=== PATIENT | male | born 1935 | race Caucasian/White ===

== ENCOUNTER → 2016-12-30 | Outpatient (CLI) | payer OTHER ==
--- NOTE | 2017-01-01 08:15 | RADONC ---
RADIATION ONCOLOGY FOLLOWUP NOTE DATE: 12/30/2016 CHART NUMBER: [id number] DIAGNOSIS: Prostate cancer. STAGE: Stage IV. ECOG PERFORMANCE STATUS: 1. FOLLOWUP NOTE: Mr. Fernandez is a very pleasant 81-year-old white male with the diagnosis of metastatic adenocarcinoma of the prostate who is presenting to us today for routine followup visit 1 year and 9 months post completion of palliative radiation therapy to his lower thoracic spine. The patient presents today reporting that the area treated is feeling much better and he is having almost no pain there at all. He reports a marked recent increase in the pain in his lower back however below the treated area. He reports that this has increased significantly over the past couple of months. The pain now is running down his legs bilaterally. The patient has no other complaints at this time related to his radiation therapy or disease. He has the general physical limitations, but overall denies nausea, vomiting, fevers, chills, night sweats, diplopia, headaches, anxiety, depression, anorexia, weight loss, visual disturbances, chest pain, urinary or bowel difficulties, or neurological problems. PHYSICAL EXAMINATION: The patient is a well-developed, well-nourished male in no acute distress. HEENT exam is normocephalic, atraumatic. Extraocular movements are intact. There is no palpable cervical, supraclavicular, infraclavicular, axillary, or inguinal lymphadenopathy present. Lungs are clear to auscultation and percussion. Heart has a regular rate and rhythm. Abdomen is benign with no hepatosplenomegaly, masses, or tenderness. Rectal examination reveals a normal anal sphincter tone. Skeletal examination reveals no tenderness to pressure or percussion of the bony skeleton. Extremities reveal no clubbing, cyanosis, or edema. Neurologic exam is grossly intact, as is the remainder of the physical examination. ASSESSMENT: The patient has done well with his radiation to the thoracic spine from the levels of T10 through L1 with a marked improvement following radiation for the past 2 years. He is reporting new pain and I am ordering an MRI of the lower spine as well as a new bone scan to further evaluate his present situation. Clearly, he has done well with palliative radiation therapy in the past and should there be disease that is treatable we are more than happy to take care of this patient's difficulty. Once again, I have ordered new studies to be undertaken and the patient will be returning to me following completion of those studies to review the results and see if we could deliver any palliation for his discomfort. In the meantime, he will continue his follow up with his other physicians as well. Cc: Dr. Ramirez, Dr. Garett Justice cc: Leonel Kraft MD, FRCPC Killian Weaver MD
== END ==
LOC: M ONCR 13:11
PROVIDERS: ATTEND Radiology Radiation Oncology
DX: C61 Malignant neoplasm of prostate (principal); C79.51 Secondary malignant neoplasm of bone

== ENCOUNTER → 2017-01-18 | Outpatient (CLI) | payer OTHER ==
[~2017-01-18] MED LIST: PROHANCE 279.3MG/ML 5ML VIAL (A9576) As Ordered ONE
--- NOTE | 2017-01-18 12:42 | REP ---
MR LUMBAR SPINE WITHOUT AND WITH CONTRAST: HISTORY: Prostate carcinoma. CONTRAST: ProHance 9 mL. COMPARISON: 04/15/2015 Decreased signal intensity on T2-weighted images is present in the L3-4 through L5-S1 intervertebral discs. The discs are decreased in height. These findings are consistent with disc degeneration. There is no disc bulge or herniation at the L1-2 and L2-3 levels. There is hypertrophy of the posterior articulating facets. The nerves exit the neural foramina without compression. A diffuse disc bulge is present in the L3-4 level. There is minimal compression of the thecal sac. There is hypertrophy of the posterior articulating facets. The L3 nerves exit the neural foramina without compression. A diffuse disc bulge is present at the L4-5 level. There is hypertrophy of the ligamenta flava and posterior articulating facets. These findings produce minimal central canal stenosis. The L4 nerves exit the neural foramina without compression. A diffuse disc bulge is present at the L5-S1 level. This abuts the thecal sac and S1 nerves. There is hypertrophy of the posterior articulating facets. There is compression of the L5 nerves in the neural foramina. The conus medullaris is normal in appearance terminating at the level of the L1-2 intervertebral disc. Diffuse increased signal intensity signal intensity on T1- weighted images is present in the visualized vertebral bodies. This represents fatty marrow replacement secondary to radiation therapy. Heterogeneous signal intensity on T2-weighted images is present in the T11 and 12 vertebral bodies. There is mild heterogeneous enhancement with contrast. These are consistent with metastases. There is moderate and mild loss of vertebral body height at the T11 and T12 levels respectively. There is no subluxation or epidural extension. A small focus of decreased signal intensity on T1 weighted images is present in the L1 vertebral body. There is no enhancement with contrast. IMPRESSION: 1. Diffuse disc bulge at the L3-4 level with minimal thecal sac compression. 2. Minimal central canal stenosis at the L4-5 level secondary to disc bulge, ligamentous and facet hypertrophy. 3. Diffuse disc bulge at the L5-S1 level. This abuts the S1 nerves. There is compression of the L5 nerves in the neural foramina. 4. There are metastatic lesions in the T11 and T12 vertebral bodies with moderate and mild height loss respectively. There is no epidural extension or subluxation. ? Signed by Trav Abarca MD 01/18/2017 01:39 P
--- NOTE | 2017-01-19 06:30 | REP ---
Whole-body bone scan: 01/18/2017. Comparison 09/30/2015 bone scan. Technique: The patient received 21.4 mCi technetium 99m MDP via an IV with whole body and anterior and posterior delayed images. Oblique small field of view images of the pelvis in anterior and posterior ejections as well as the chest and lateral views of the cervical spine and skull. There is abnormal increased activity in the T11 and T12 vertebral bodies. There is now activity in the T10 posterior rib on the right. This is new and I would regard as suspicious as it is several centimeters long. The remainder of the visualized ribs show no acute or discrete findings. The AC and glenohumeral joints and sternoclavicular joints showed mild increased uptake as do the knees and hips consistent with degenerative disease. Cervical spine uptake shows some degenerative change and this is unchanged from the previous study. No abnormal uptake in the calvarium. Paranasal sinuses and mandible shows some increased uptake suggesting sinus and dental disease. Long bones show no abnormal uptake. There is activity in the kidneys and bladder. Impression: 1. Metastatic disease again noted with uptake in the T11 and T12 vertebral bodies and new uptake in the posterior right tenth rib representing a new metastatic focus. Remainder of the exam is unchanged. Signed by Jose Thornton MD 01/19/2017 08:23 P
== END ==
LOC: M RAD 09:45
PROVIDERS: ATTEND Radiology Radiation Oncology
DX: M51.26 Other intervertebral disc displacement, lumbar region (principal); M51.27 Other intervertebral disc displacement, lumbosacral region; C61 Malignant neoplasm of prostate; C79.51 Secondary malignant neoplasm of bone
CPT/HCPCS: 72158; 78306; A9503; A9576

== ENCOUNTER → 2017-01-20 | Outpatient (CLI) | payer OTHER ==
--- NOTE | 2017-01-20 11:15 | RADONC ---
RADIATION ONCOLOGY FOLLOWUP NOTE: DATE: 01/20/2017 CHART NUMBER: [id number] DIAGNOSIS: Prostate cancer. STAGE: IV ECOG PERFORMANCE STATUS: 1 Mr. Fernandez is a very pleasant 81-year-old white male with the diagnosis of metastatic adenocarcinoma of the prostate who saw me on [id number] complaining of low back pain. Since his I have ordered a bone scan which was done on 01/18/2017 which only showed a small area of new uptake in the right 10th rib. An MRI done of the lower lumbar spine on 01/18/2017 showed multiple areas of disc bulge but no significant evidence of new metastatic disease. REVIEW OF SYSTEMS: The patient's review of systems is basically unchanged. He continues have low back pain. He has no rib pain. He has physical limitations secondary to his age and mobility issues. He denies nausea, vomiting, fevers, chills, night sweats, diplopia, headaches, anxiety or depression, anorexia, weight loss, visual disturbances, chest pain, urinary or bowel difficulties. PHYSICAL EXAMINATION: The patient is a chronically ill elderly male in no acute distress. HEENT: Exam is normocephalic, atraumatic. Extraocular movements are intact. There is no palpable cervical, supraclavicular, infraclavicular, axillary or inguinal lymphadenopathy present. His lungs are clear to auscultation and percussion. His heart has regular rate and rhythm. His abdomen is benign with no splenomegaly, masses or tenderness. Skeletal examination reveals no tenderness to pressure percussion of the bony skeleton. Extremities reveal no clubbing, cyanosis or edema. ASSESSMENT: The patient is clinically stable at this point. His back pain is related to degenerative issues rather than malignancy. He is undergoing Lupron treatments at this time and his systemic therapy appears to be keeping him in good set. Once again I have scheduled the patient see me again in 6 months for further followup. He will also continue to be followed by his other physicians. Cc: Dr. Ashley Justice. cc: Leonel Kraft MD, CPC Killian Weaver MD
== END ==
LOC: M ONCR 09:55
PROVIDERS: ATTEND Radiology Radiation Oncology
DX: C61 Malignant neoplasm of prostate (principal); C79.51 Secondary malignant neoplasm of bone

== ENCOUNTER → 2017-09-07 | Outpatient (CLI) | payer OTHER | LOC: M ONCR 12:36 | DX: C61 Malignant neoplasm of prostate (principal); C79.51 Secondary malignant neoplasm of bone | CPT/HCPCS: G0463 ==

== ENCOUNTER → 2017-09-24 | Outpatient (CLI) | payer OTHER ==
[~2017-09-24] MED LIST changes: +PROHANCE 279.3MG/ML 15ML VIAL (A9576) As Ordered; +PROHANCE 279.3MG/ML 5ML VIAL (A9576) As Ordered; -PROHANCE 279.3MG/ML 5ML VIAL (A9576) As Ordered ONE
== END ==
LOC: M RAD 13:59
DX: C61 Malignant neoplasm of prostate (principal)
CPT/HCPCS: A9576